=== PATIENT | female | born 1945 | race Caucasian/White ===

== ENCOUNTER 2016-04-10 16:23 | Outpatient (CLI) | payer MEDICARE | END 2016-04-10 16:24 | disposition home or self-care (01) | DX: R91.8 Other nonspecific abnormal finding of lung field (principal) ==

== ENCOUNTER 2016-08-13 09:33 | Emergency (ER) | payer MEDICARE ==
[2016-08-13 09:40] VITALS: BP 142/87
[2016-08-13] MEDS ORDERED: predniSONE 20 MG TABLET PO STA (09:52)
[2016-08-13] MEDS ORDERED: LORATADINE 10 MG TABLET PO STA (09:52)
[2016-08-13] MEDS ORDERED: traMADol 50 MG TABLET PO STA (09:53)
[2016-08-13] MEDS ORDERED: DOXYCYCLINE 100 MG TABLET PO STA (09:53)
--- NOTE | 2016-08-13 09:58 | ED Physician Documentation ---
History of Present Illness - Stated complaint Stated Complaint: R LEG SWOLLEN - Chief complaint Chief Complaint: Ext Problem - Additonal information Additional information: Patient is 8-year-old female who presents with the complaint of right medial knee pain. The patient felt an acute pain on Sunday while working the garden. She was wearing jeans. From that time to the present the areas become more swollen, tender, and painful. She has no other complaints such as fever chills nausea vomiting, constipation diarrhea or lower urinary symptoms. She has now noticed a few blisters in the area. Review of systems: For pertinent positive and negative questions for the review of systems please see history of present illness. Otherwise all other systems have been reviewed and are negative. Dragon disclaimer: Parts of this medical record were created using voice recognition technology. Because of the inherent limitations of this system occasional same sounding word substitutions do occur and persist despite proofreading. Please read the document for context. 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 Cardiovascular: Coronary stent HEENT: Tonsil/Adenoidectomy - Present Medications Home Medications: Ambulatory Orders Medication Instructions Recorded Confirmed Atorvastatin Calcium [Lipitor] 20 mg PO DAILY 07/03/12 08/13/16 FLUoxetine [PROzac] 20 mg PO DAILY 07/03/12 08/13/16 Multivitamin [Multivitamins] 1 each PO DAILY 07/03/12 08/13/16 Aspirin [Adult Low Dose Aspirin EC] 81 mg PO DAILY 08/13/16 08/13/16 Clopidogrel [Plavix] 75 mg PO DAILY 08/13/16 08/13/16 Doxycycline Hyclate [Vibramycin] 100 mg PO BID #14 capsule 08/13/16 Lisinopril 2.5 mg PO DAILY 08/13/16 08/13/16 Loratadine [Claritin] 10 mg PO DAILY #7 tablet 08/13/16 Metoprolol Tartrate 12.5 mg PO DAILY 08/13/16 08/13/16 Prednisone 40 mg PO DAILY #8 tablet 08/13/16 - Allergies Allergies/Adverse Reactions: Allergies Allergy/AdvReac Type Severity Reaction Status Date / Time bupropion HCl * Allergy Severe Hives and Verified 07/03/12 15:28 [From Wellbutrin] throat swelling Penicillins Allergy Severe hives and Verified 07/03/12 15:28 throat swelling - Social History Does the pt smoke?: Yes Smoking Status: Current every day smoker Does the pt drink ETOH?: Yes Does the pt have substance abuse?: No - Immunizations Immunizations are current?: Yes - POLST Patient has POLST: No PD ED PE NORMAL - General General: Alert and oriented X 3, No acute distress - HEENT HEENT: Atraumatic, PERRL - Cardiac Cardiac: RRR, No murmur - Respiratory Respiratory: No respiratory distress, Clear bilaterally - Abdomen Abdomen: Normal bowel sounds, Soft (On examination of the skin proximal and medial to the right knee there is an area that is approximately 6 x 8" that is mildly erythematous. There are a few discrete bulla in this area that are Containing a clear yellow fluid.) - Free text exam Free text exam: 6 x 8 cm patch right medial knee with a mild erythematous base and few clear bullae Results - Vitals Vitals: Vital Signs - 24 hr 08/13/16 09:36 Temperature 35.5 C L Heart Rate 72 Respiratory 18 Rate Blood Pressure 142/87 H O2 Saturation 99 Oxygen O2 Source Room air PD MEDICAL DECISION MAKING - ED course ED course: Patient presents with a swollen painful red area in the right middle knee with a few Clear bullae that are tense. It is in a location that is to well localized to represent shingles. I doubt infection although I might treat her for possible secondarily infected bite or sting. I think the mainstay of the treatment is going to be Oral steroids and antihistamines. Disposition: To home Clinical impression suspect insect bite or sting with local allergic reaction Departure - Departure Disposition: 01 Home, Self Care Clinical Impression: Insect bite Qualifiers: Encounter type: initial encounter Qualified Code(s): W57.XXXA - Bitten or stung by nonvenomous insect and other nonvenomous arthropods, initial encounter Condition: Good Instructions: Bites Stings Insect Follow-Up: Migdalia Kiran PA-C [Primary Care Provider] - Prescriptions: Loratadine [Claritin] 10 mg PO DAILY #7 tablet Prednisone 40 mg PO DAILY #8 tablet Doxycycline Hyclate [Vibramycin] 100 mg PO BID #14 capsule
[2016-08-13] MEDS ORDERED: traMADol 50 MG TABLET PO ONE (10:03)
[2016-08-13] MEDS ORDERED: DOXYCYCLINE 100 MG TABLET PO ONE (10:03)
[2016-08-13] MEDS ORDERED: LORATADINE 10 MG TABLET ONE (10:04)
[2016-08-13] MEDS ORDERED: predniSONE 20 MG TABLET ONE (10:04)
--- NOTE | 2016-08-16 12:45 | ED Physician Documentation ---
ED Addendum - Addendum Addendum: 08/16/16 12:44 Please change the Age listed in the documentation from 8 to age [age] years old
== END 2016-08-13 10:51 | disposition home or self-care (01) ==
LOC: ED 09:33
DX: S80.261A Insect bite (nonvenomous), right knee, initial encounter (principal); W57.XXXA Bitten or stung by nonvenomous insect and other nonvenomous arthropods, initial encounter; Y93.H2 Activity, gardening and landscaping; I25.2 Old myocardial infarction; F17.200 Nicotine dependence, unspecified, uncomplicated; Z95.5 Presence of coronary angioplasty implant and graft; Z79.82 Long term (current) use of aspirin
CPT/HCPCS: 99283; A9270; J7512

== ENCOUNTER 2016-11-28 08:21 | Outpatient (CLI) | payer MEDICARE ==
[2016-11-28 11:55] LABS: BASOPHILS # (AUTO) 0.1 10^3/uL (0.0-0.1); BASOPHILS % (AUTO) 0.7 %; EOSINOPHILS # (AUTO) 0.1 10^3/uL (0.0-0.7); EOSINOPHILS % (AUTO) 1.2 %; HCT - HEMATOCRIT 42.6 % (37.0-47.0); HGB - HEMOGLOBIN 14.3 g/dL (12.0-16.0); LYMPHOCYTES # (AUTO) 2.7 10^3/uL (1.5-3.5); LYMPHOCYTES % (AUTO) 34.3 %; MEAN CORPUSCULAR HEMOGLOBIN 32.1 pg (27.0-31.0); MEAN CORPUSCULAR HGB CONC 33.7 g/dL (32.0-36.0); MEAN CORPUSCULAR VOLUME 95.4 fL (81.0-99.0); MEAN PLATELET VOLUME 9.5 fL (7.9-10.8); MONOCYTES # (AUTO) 0.7 10^3/uL (0.0-1.0); MONOCYTES % (AUTO) 8.6 %; NEUTROPHILS # (AUTO) 4.4 10^3/uL (1.5-6.6); NEUTROPHILS % (AUTO) 55.2 %; NUCLEATED RED BLOOD CELLS AUTO 0.1 /100WBC; RED BLOOD COUNT 4.46 10^6/uL (4.20-5.40); RED CELL DISTRIBUTION WIDTH 12.7 % (12.0-15.0); UNCORRECTED WHITE BLOOD COUNT 7.9 x10^3/uL; WHITE BLOOD COUNT 7.9 x10^3/uL (4.8-10.8)
[2016-11-28 12:13] LABS: ALBUMIN/GLOBULIN RATIO 1.4 (1.0-2.2); BILIRUBIN,TOTAL 0.8 mg/dL (0.2-1.0); BUN - BLOOD UREA NITROGEN 15 mg/dL (6-20); CALCIUM 9.3 mg/dL (8.5-10.3); CARBON DIOXIDE - CO2 29 mmol/L (21-32); CHLORIDE 100 mmol/L (101-111); CHOL/HDL RATIO 4.5 (<4.4); CHOLESTEROL 161 mg/dL; CREATININE 0.8 mg/dL (0.4-1.0); GFR - MDRD 71 (>89); GLUCOSE 109 mg/dL (70-100); HDL CHOLESTEROL 36 mg/dL; LDL/HDL RATIO 2.6 (<4.4); POTASSIUM 4.3 mmol/L (3.5-5.0); SODIUM 138 mmol/L (135-145); TRIGLYCERIDES 148 mg/dL; VLDL CHOLESTEROL 30 mg/dL
[2016-11-28 12:28] LABS: THYROID STIMULATING HORMONE 3.15 uIU/mL (0.34-5.60)
== END 2016-11-28 08:22 | disposition home or self-care (01) ==
LOC: LAB.F 08:21
PROVIDERS: ATTEND Physician Assistant Medical
DX: Z79.899 Other long term (current) drug therapy (principal); Z91.89 Other specified personal risk factors, not elsewhere classified; R73.9 Hyperglycemia, unspecified; F32.9 Major depressive disorder, single episode, unspecified; E78.2 Mixed hyperlipidemia
CPT/HCPCS: 36415; 80053; 80061; 82607; 84443; 85025

== ENCOUNTER 2017-01-23 08:25 | Outpatient (CLI) | payer MEDICARE ==
--- NOTE | 2017-01-24 09:10 | MRI Report ---
EXAM: MRI LUMBAR SPINE WITHOUT CONTRAST EXAM DATE: 01/23/2017 09:02 AM. CLINICAL HISTORY: Back pain, lumbar with radiculopathy. COMPARISON: None. TECHNIQUE: Multiplanar, multisequence T1-weighted and fluid-sensitive sequences of the lumbar spine f rom T12 to S1 without contrast. Other: None. FINDINGS: Spinal Cord: The conus terminates at L1-L2. The conus medullaris and cauda equina are unremarkable. Alignment: There is flattening of the lumbar lordosis with a slight flexion deformity at L2-L3. Bone Marrow: Five [id number] lumbar vertebral bodies are assumed. No gross fractures or bone les ions. No bone marrow edema. Disk Levels/Facets: T12-L1: Unremarkable. L1-L2: Unremarkable. L2-L3: There is a broad-based posterior disk bulge causing mild canal narrowing. There is mild bilate ral foraminal narrowing. L3-L4: Unremarkable. L4-L5: Broad-based posterior disk bulge with moderate bilateral facet joint osteoarthritis and ligame ntum flavum redundancy causing mild canal narrowing. Mild left and moderate right foraminal narrowing . L5-S1: There is a broad-based posterior disk bulge with moderate right and mild left foraminal narrow ing. There is mild canal narrowing. There is mild right and minimal left foraminal narrowing. Musculature: Normal. No edema or fatty atrophy. Other: The partially visualized retroperitoneum is unremarkable. IMPRESSION: 1. Moderate degenerative change of the lumbar spine. 2. Mild canal narrowing at L2-L3, L4-L5 and L5-S1. 3. Moderate right and mild left foraminal narrowing at L4-L5. 4. Mild right and minimal left foraminal narrowing at L5-S1. Comment: The following findings are so common in adults without low back pain that while we report th eir presence, they must be interpreted with caution and in the context of the clinical situation. (Re marie Marie et al, Spine 2001) Prevalence of findings in patients without low back pain: Disk degeneration (any evidence): 92% Disk desiccation/T2 signal loss: 83% Disk height loss: 56% Disk bulge: 64% Disk protrusion: 32% Annular tear/high intensity zone: 38% [facility] Referring Provider Line: [phone] SITE ID: [id number]
== END 2017-01-23 08:26 | disposition home or self-care (01) ==
LOC: DI 08:25
PROVIDERS: ATTEND Physician Assistant Medical
DX: M54.16 Radiculopathy, lumbar region (principal); M48.061 Spinal stenosis, lumbar region without neurogenic claudication
CPT/HCPCS: 72148

== ENCOUNTER 2017-04-03 10:47 | Emergency (ER) | payer MEDICARE ==
[2017-04-03] MEDS ORDERED: SODIUM CHLORIDE 0.9% 1,000 ML IV ONE (12:01)
--- NOTE | 2017-04-03 12:03 | ED Physician Documentation ---
History of Present Illness - Stated complaint Stated Complaint: DIZZY,WEAK,HEAD PX - Chief complaint Chief Complaint: Neuro - History obtained from History obtained from: Patient, Family - History of Present Illness Timing: How many weeks ago (8) - Additonal information Additional information: 71-year-old female is began to have some episodes of dizziness and weakness about 2 months ago. This is become precipitously worse over the past 4-5 days. She is having episodes of dizziness when she stands up too fast with lightheadedness and sometimes when she is just standing she will develop dizziness.She denies any nausea vomiting diarrhea or changing her medications with the exception of reducing her venlafaxine over the past month. She states that the dizziness episodes preceded her taper of her medication. She reports that she has been trying to stop smoking for years and has worn a nicotine patch she is down to about 4 cigarettes per day. She does not use any diuretic and she believes that she is drinking an adequate amount of fluid daily. She has been waking up at night with sweats. Review of Systems Constitutional: reports: Sweats. denies: Fever Eyes: denies: Decreased vision Ears: reports: Ear pain Nose: denies: Rhinorrhea / runny nose, Congestion Throat: denies: Sore throat Cardiac: denies: Chest pain / pressure, Palpitations Respiratory: reports: Dyspnea. denies: Cough GI: denies: Abdominal Pain, Nausea, Vomiting, Constipation, Diarrhea : denies: Dysuria, Frequency Skin: denies: Rash Musculoskeletal: denies: Neck pain, Back pain, Extremity pain Neurologic: reports: Generalized weakness, Headache. 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 Cardiovascular: Coronary stent HEENT: Tonsil/Adenoidectomy - Present Medications Home Medications: Ambulatory Orders Medication Instructions Recorded Confirmed Atorvastatin Calcium [Lipitor] 20 mg PO DAILY 07/03/12 04/03/17 Multivitamin [Multivitamins] 1 each PO DAILY 07/03/12 04/03/17 Aspirin [Adult Low Dose Aspirin EC] 81 mg PO DAILY 08/13/16 04/03/17 Lisinopril 2.5 mg PO DAILY 08/13/16 04/03/17 Metoprolol Tartrate 12.5 mg PO DAILY 08/13/16 04/03/17 Mark Cit/Mag/D3/Zn/Management Nurse Rn/Joseph/Bor 400 mg PO DAILY 04/03/17 04/03/17 [Citracal-Vit D + Magnesium Tab] Nitroglycerin [Nitrostat] 0.4 mg SL PRN PRN 04/03/17 04/03/17 [place]-3/Dha/Epa/Fish Oil [Fish Oil 1,000 mg PO DAILY 04/03/17 04/03/17 1,000 mg Softgel] Ubidecarenone [Co Q-10] 200 mg PO DAILY 04/03/17 04/03/17 - Allergies Allergies/Adverse Reactions: Allergies Allergy/AdvReac Type Severity Reaction Status Date / Time bupropion HCl * Allergy Severe Hives and Verified 04/03/17 10:56 [From Wellbutrin] throat swelling Penicillins Allergy Severe hives and Verified 04/03/17 10:56 throat swelling - Social History Does the pt smoke?: Yes Smoking Status: Current every day smoker Does the pt drink ETOH?: Yes Does the pt have substance abuse?: No - Immunizations Immunizations are current?: Yes - POLST Patient has POLST: No PD ED PE NORMAL - Vitals Vital signs reviewed: Yes (tachy and hypertensive) - General General: Alert and oriented X 3, No acute distress, Well developed/nourished - HEENT HEENT: Atraumatic, PERRL, EOMI, Ears normal, Other (dry mucous membranes) - Neck Neck: Supple, no meningeal sign, No bony TTP - Cardiac Cardiac: No murmur, Other (tachy to 110) - Respiratory Respiratory: No respiratory distress, Clear bilaterally - Abdomen Abdomen: Soft, Non tender - Back Back: No CVA TTP, No spinal TTP - Derm Derm: Normal color, Warm and dry, No rash - Extremities Extremities: No deformity, No edema - Neuro Neuro: Alert and oriented X 3, predatory game hunter 2-12 intact, No motor deficit, No sensory deficit, Normal speech Eye Opening: Spontaneous Motor: Obeys Commands Verbal: Oriented GCS Score: 15 - Psych Psych: Normal mood, Normal affect Results - Vitals Vitals: Vital Signs - 24 hr 04/03/17 04/03/17 04/03/17 10:55 10:56 13:15 Temperature 36.8 C 36.5 C Heart Rate 112 H 106 H 64 Respiratory 18 18 14 Rate Blood Pressure 184/98 H 184/98 H 145/67 H O2 Saturation 97 98 100 04/03/17 14:59 Temperature Heart Rate 60 Respiratory 18 Rate Blood Pressure 133/63 H O2 Saturation 99 Oxygen O2 Source Room air - EKG (time done) 1057 Rate: Rate (enter#) (109) Rhythm: Sinus tachycardia, LAE Ischemia: Q waves (consistent with prior anterior and inferior. ) Compare to prior EKG: Changed from prior EKG (08-15-2012 rate has increased ) Computer interpretation: Agree with computer - Labs Labs: Laboratory Tests 04/03/17 04/03/17 04/03/17 12:10 12:10 12:10 WBC 14.0 H RBC 4.47 Hgb 14.6 Hct 42.5 MCV 95.0 MCH 32.6 H MCHC 34.3 RDW 12.8 Plt Count 266 MPV 9.3 Neut # 10.3 H Lymph # 2.3 [place] # 1.2 H Eos # 0.0 Baso # 0.1 Absolute Nucleated RBC 0.00 Nucleated RBC % 0.0 Sodium 134 L Potassium 4.0 Chloride 98 L Carbon Dioxide 25 Anion Gap 11.0 BUN 14 Creatinine 0.7 Estimated GFR (MDRD) 83 L Glucose 126 H Calcium 9.5 Total Bilirubin 0.5 AST 36 ALT 34 Alkaline Phosphatase 46 Troponin I < 0.04 Total Protein 7.4 Albumin 4.2 Globulin 3.2 Albumin/Globulin Ratio 1.3 Lipase 13 L TSH Urine Color Urine Clarity Urine pH Ur Specific [place] Urine Protein Urine Glucose (UA) Urine Ketones Urine Occult Blood Urine Nitrite Urine Bilirubin Urine Urobilinogen Ur Leukocyte Esterase Urine RBC Urine WBC Ur Squamous Epith Cells Amorphous Sediment Urine Bacteria Ur Microscopic Review Urine Culture Comments 04/03/17 04/03/17 12:10 12:15 WBC RBC Hgb Hct MCV MCH MCHC RDW Plt Count MPV Neut # Lymph # [place] # Eos # Baso # Absolute Nucleated RBC Nucleated RBC % Sodium Potassium Chloride Carbon Dioxide Anion Gap BUN Creatinine Estimated GFR (MDRD) Glucose Calcium Total Bilirubin AST ALT Alkaline Phosphatase Troponin I Total Protein Albumin Globulin Albumin/Globulin Ratio Lipase TSH 2.38 Urine Color YELLOW Urine Clarity CLOUDY Urine pH 7.0 Ur Specific [place] 1.020 Urine Protein TRACE Urine Glucose (UA) NEGATIVE Urine Ketones NEGATIVE Urine Occult Blood NEGATIVE Urine Nitrite NEGATIVE Urine Bilirubin NEGATIVE Urine Urobilinogen 0.2 (NORMAL) Ur Leukocyte Esterase NEGATIVE Urine RBC 0-5 Urine WBC 0-3 Ur Squamous Epith Cells FEW Squamous Amorphous Sediment Moderate Urine Bacteria Few Ur Microscopic Review INDICATED Urine Culture Comments NOT INDICATED Procedures - IVC sono (time) 1158 Bedside IVC sono: IVC measures (cm) (0.60), IVC collapsed c insp (cm) (complete) , Significant dehydration (est 3 liter deficit) 1440 Bedside IVC sono: IVC measures (cm) (1.26), Dehydration (marked improvement) PD MEDICAL DECISION MAKING - ED course Complexity details: reviewed old records, reviewed results, re-evaluated patient , considered differential, d/w patient, d/w family ED course: 71-year-old female with a chief complaint of dizziness which is worse after reducing her dose of venlafaxine. On interrogation the inferior vena cava she was found to be profoundly dehydrated and I search for explanation of this. I did not find evidence of diabetes I did not find low blood counts I do not find electrolyte abnormalities. She had a normal urine specific gravity. On further questioning it is apparent the patient overdoes caffeine on a regular basis. She has 2 cups of coffee in the morning and following that she has T throughout the rest of the day and she drinks a fair amount of tea. She is likely consuming as much as a gram of caffeine per day and this would act as a diuretic. Here in the emergency department she is administered saline intravenously and her inferior vena cava is remeasured and is much closer to normal at the time of discharge. She still has symptoms that are not part of a normal symptom complex including the burning in her ears in the back of her scalp and I suspect these are symptoms of the reduction and the venlafaxine dose and I expect these to adjust over a period of time. She will discuss this further with Migdalia kiran tomorrow at her appointment. Departure - Departure Disposition: 01 Home, Self Care Clinical Impression: Dehydration, Selective serotonin reuptake inhibitor (SSRI) discontinuation syndrome Condition: Stable Instructions: SSRIs, ED Dehydration Follow-Up: Migdalia Kiran PA-C [Primary Care Provider] - Comments: Today it appears that your primary symptom of dizziness is related to dehydration and I suspect the dehydration is related to the diuretic effect of the excessive caffeine you are taking in. The other symptoms that you have us appear to enhance the symptoms you are having from the dehydration. There are also other symptoms that are all likely related to your reduction in the venlafaxine. This should improve over a period of time follow-up with your primary care doctor.I recommend that you reduce your caffeine intake slowly and use no more than 400 mg per day. This is equivalent of 2 cups of coffee and a cup of tea. Discharge Date/Time: 04/03/17 15:06
[2017-04-03 12:34] LABS: BILIRUBIN,URINE NEGATIVE (NEGATIVE); GLUCOSE, URINE (UA) NEGATIVE (NEGATIVE); KETONES,URINE (UA) NEGATIVE (NEGATIVE); LEUKOCYTE ESTERASE, URINE NEGATIVE (NEGATIVE); NITRITE,URINE NEGATIVE (NEGATIVE); OCCULT BLOOD,URINE NEGATIVE (NEGATIVE); PROTEIN,URINE TRACE mg/dL (NEGATIVE); UROBILINOGEN,URINE 0.2 (NORMAL) E.U./dL (NORMAL)
[2017-04-03 12:38] LABS: BASOPHILS # (AUTO) 0.1 10^3/uL (0.0-0.1); BASOPHILS % (AUTO) 0.6 %; EOSINOPHILS % (AUTO) 0.1 %; HGB - HEMOGLOBIN 14.6 g/dL (12.0-16.0); LYMPHOCYTES # (AUTO) 2.3 10^3/uL (1.5-3.5); LYMPHOCYTES % (AUTO) 16.6 %; MEAN CORPUSCULAR HEMOGLOBIN 32.6 pg (27.0-31.0); MEAN CORPUSCULAR HGB CONC 34.3 g/dL (32.0-36.0); MEAN PLATELET VOLUME 9.3 fL (7.9-10.8); MONOCYTES # (AUTO) 1.2 10^3/uL (0.0-1.0); MONOCYTES % (AUTO) 8.8 %; NEUTROPHILS # (AUTO) 10.3 10^3/uL (1.5-6.6); NEUTROPHILS % (AUTO) 73.9 %; PLT - PLATELET COUNT 266 10^3/uL (130-450); RED BLOOD COUNT 4.47 10^6/uL (4.20-5.40); RED CELL DISTRIBUTION WIDTH 12.8 % (12.0-15.0)
[2017-04-03 12:39] LABS: CLARITY,URINE CLOUDY (CLEAR)
[2017-04-03 12:43] LABS: RBC,URINE 0-5 /HPF (0-5)
[2017-04-03 12:44] LABS: AMORPHOUS SEDIMENT,UR Moderate /LPF; BACTERIA,URINE Few /HPF (None Seen); SQUAMOUS EPITHELIAL CELL,UR FEW Squamous (<= Few)
[2017-04-03 12:47] LABS: ALBUMIN 4.2 g/dL (3.2-5.5); ALBUMIN/GLOBULIN RATIO 1.3 (1.0-2.2); BILIRUBIN,TOTAL 0.5 mg/dL (0.2-1.0); CALCIUM 9.5 mg/dL (8.5-10.3); CREATININE 0.7 mg/dL (0.4-1.0); TOTAL PROTEIN 7.4 g/dL (6.7-8.2)
--- NOTE | 2017-04-03 13:25 | XRAY Report ---
EXAM: CHEST RADIOGRAPHY EXAM DATE: 04/03/2017 12:40 PM. CLINICAL HISTORY: Weakness . COMPARISON: Chest x-ray 04/10/2016. TECHNIQUE: 2 views. FINDINGS: Lungs/Pleura: No focal opacities evident. No pleural effusion. No pneumothorax. Normal volumes. Mediastinum: Atherosclerotic aortic calcifications. Prominent cardiac silhouette may be due to pectus excavatum and/or cardiomegaly. Other: None. IMPRESSION: 1. No consolidation evident. [facility] Referring Provider Line: [phone] SITE ID: [id number]
[2017-04-03 15:00] VITALS: BP 133/63
== END 2017-04-03 15:06 | disposition home or self-care (01) ==
LOC: ED 10:47
DX: E86.0 Dehydration (principal); T43.225A Adverse effect of selective serotonin reuptake inhibitors, initial encounter; R00.0 Tachycardia, unspecified; I25.2 Old myocardial infarction; E78.00 Pure hypercholesterolemia, unspecified; Z79.82 Long term (current) use of aspirin; Z95.5 Presence of coronary angioplasty implant and graft; F17.200 Nicotine dependence, unspecified, uncomplicated
CPT/HCPCS: 36415; 71046; 80053; 81001; 81003; 83690; 84443; 84484; 85025; 87086; 93005; 96360; 99283; 99284

== ENCOUNTER 2017-08-13 13:34 | Outpatient (CLI) | payer MEDICARE ==
--- NOTE | 2017-08-13 14:29 | XRAY Report ---
Procedure Date: 08/13/2017 Accession Number: [id number] / [id number] Procedure: XR - Foot 2 View RT CPT Code: FULL RESULT: EXAM: Foot 2 View RT DATE: 08/13/2017 1:47 PM CLINICAL HISTORY: FOOT PAIN,RIGHT COMPARISON: None. TECHNIQUE: 2 views. FINDINGS: Bones: Small plantar and posterior calcaneal spurs. Joints: Mild osteoarthritis of interphalangeal joints. Soft Tissues: Normal. No soft tissue swelling. IMPRESSION: Mild degenerative changes. No evidence of fracture or foreign body. [facility]
== END 2017-08-13 13:35 | disposition home or self-care (01) ==
LOC: DI 13:34
PROVIDERS: ATTEND Physician Assistant Medical
DX: M19.071 Primary osteoarthritis, right ankle and foot (principal)

== ENCOUNTER 2017-12-04 07:54 | Outpatient (CLI) | payer MEDICARE ==
[2017-12-04 12:17] LABS: BASOPHILS % (AUTO) 0.6 %; EOSINOPHILS % (AUTO) 0.6 %; HGB - HEMOGLOBIN 12.7 g/dL (12.0-16.0); LYMPHOCYTES # (AUTO) 1.9 10^3/uL (1.5-3.5); LYMPHOCYTES % (AUTO) 24.2 %; MEAN CORPUSCULAR HEMOGLOBIN 33.6 pg (27.0-31.0); MEAN CORPUSCULAR HGB CONC 34.6 g/dL (32.0-36.0); MEAN CORPUSCULAR VOLUME 97.2 fL (81.0-99.0); MEAN PLATELET VOLUME 8.8 fL (7.9-10.8); MONOCYTES # (AUTO) 0.6 10^3/uL (0.0-1.0); MONOCYTES % (AUTO) 7.8 %; NEUTROPHILS # (AUTO) 5.4 10^3/uL (1.5-6.6); NEUTROPHILS % (AUTO) 66.8 %; PLT - PLATELET COUNT 372 10^3/uL (130-450); RED BLOOD COUNT 3.78 10^6/uL (4.20-5.40); RED CELL DISTRIBUTION WIDTH 13.6 % (12.0-15.0)
[2017-12-04 12:52] LABS: ALBUMIN 4.2 g/dL (3.2-5.5); ALBUMIN/GLOBULIN RATIO 1.3 (1.0-2.2); ALKALINE PHOSPHATASE 47 IU/L (42-121); ALT ALANINE AMINOTRANSFERASE 25 IU/L (10-60); AST ASPARTATE AMINOTRANSFERASE 20 IU/L (10-42); BILIRUBIN,TOTAL 0.8 mg/dL (0.2-1.0); BUN - BLOOD UREA NITROGEN 15 mg/dL (6-20); CALCIUM 9.2 mg/dL (8.5-10.3); CARBON DIOXIDE - CO2 29 mmol/L (21-32); CHLORIDE 100 mmol/L (101-111); CHOL/HDL RATIO 3.6 (<4.4); CHOLESTEROL 131 mg/dL; CREATININE 0.8 mg/dL (0.4-1.0); GFR - MDRD 71 (>89); GLUCOSE 107 mg/dL (70-100); HDL CHOLESTEROL 36 mg/dL; LDL CHOLESTEROL,CALCULATED 72 mg/dL; SODIUM 138 mmol/L (135-145); TOTAL PROTEIN 7.4 g/dL (6.7-8.2); VLDL CHOLESTEROL 23 mg/dL
[2017-12-04 12:56] LABS: HEMOGLOBIN A1C 0.51 g/dL; HEMOGLOBIN A1C % 5.7 % (4.6-6.2)
[2017-12-05 11:38] LABS: HEPATITIS C ANTIBODY NON-REACTIVE (NON-REACTIVE)
== END 2017-12-04 07:55 | disposition home or self-care (01) ==
LOC: LAB.F 07:54
PROVIDERS: ATTEND Physician Assistant Medical
DX: R73.9 Hyperglycemia, unspecified (principal); Z79.899 Other long term (current) drug therapy; I25.10 Atherosclerotic heart disease of native coronary artery without angina pectoris; F32.9 Major depressive disorder, single episode, unspecified; Z13.818 Encounter for screening for other digestive system disorders; Z72.89 Other problems related to lifestyle
CPT/HCPCS: 36415; 80053; 80061; 83036; 83721; 84443; 85025; 86803

== ENCOUNTER 2017-12-26 08:55 | Outpatient (CLI) | payer MEDICARE | END 2017-12-26 08:56 | disposition home or self-care (01) | LOC: NS 08:55 | PROVIDERS: ATTEND Physician Assistant Medical | DX: I25.10 Atherosclerotic heart disease of native coronary artery without angina pectoris (principal); E78.2 Mixed hyperlipidemia | CPT/HCPCS: 97802 ==

== ENCOUNTER 2018-01-03 08:19 | Outpatient (CLI) | payer MEDICARE ==
--- NOTE | 2018-01-04 09:51 | Mammography Report ---
Reason: SCREENING MAMMO Procedure Date: 01/03/2018 Accession Number: [id number] / [id number] Procedure: TEJA - Screening Mammo w/Sergio CPT Code: FULL RESULT: EXAM: Screening Mammo w/Sergio DATE: 01/03/2018 8:56 AM CLINICAL HISTORY: Screening encounter. TECHNIQUE: Bilateral CC, laterally exaggerated CC, MLO views were obtained. COMPARISON: 11/11/2015 through 05/30/2011. FINDINGS: The breasts demonstrate diffuse fatty replacement bilaterally. A typically benign coarse calcification is again seen in the right breast. No suspicious masses, clustered microcalcifications, or regions of architectural distortion are identified. IMPRESSION: Benign findings RECOMMENDATION: Routine annual screening unless otherwise clinically indicated. BIRADS CATEGORY 2: Benign findings STANDARD QUALIFYING STATEMENTS: 1. This examination was not reviewed with the aid of Computer-Aided Detection (CAD). 2. A negative or benign imaging report should not preclude biopsy if clinically suspicious findings are present. 3. Dense breasts may obscure an underlying neoplasm. 4. This examination was reviewed with the aid of 3D breast imaging (tomosynthesis).
== END 2018-01-03 08:20 | disposition home or self-care (01) ==
LOC: DI 08:19
PROVIDERS: ATTEND Physician Assistant Medical
DX: Z12.31 Encounter for screening mammogram for malignant neoplasm of breast (principal)
CPT/HCPCS: 77063; 77067

== ENCOUNTER 2018-01-03 08:34 | Outpatient (CLI) | payer MEDICARE ==
--- NOTE | 2018-01-04 10:25 | CT Report ---
Reason: PERSONAL HISTORY OF NICOTINE DEPENDENCE Procedure Date: 01/03/2018 Accession Number: [id number] / [id number] Procedure: CT - Chest/Lung Screen Low Dose W/O CPT Code: FULL RESULT: EXAM CT LUNG SCREEN EXAM DATE: 01/03/2018 08:56 AM. HISTORY: 72-year-old patient with [id number] smoking history. Currently smoking: No. Years since quitting: Less than 1. COMPARISON: None. TECHNIQUE: CT examination of the entire thorax without contrast was performed using low-dose technique. Thin section coronal, axial, sagittal and MIP axial images were obtained. In accordance with CT protocol optimization, one or more of the following dose reduction techniques were utilized for this exam: automated exposure control, adjustment of mA and/or KV based on patient size, or use of iterative reconstructive technique. FINDINGS: Nodules: Right upper lobe: 3 mm average diameter subpleural right upper lobe pulmonary nodule (4/29). Right middle lobe: None. Right lower lobe: 5 mm average diameter subpleural posterior right lower lobe pulmonary nodule (4/98). Left upper lobe: Subtle 3 mm nodule (4/56). Left lower lobe: None. Emphysema: None. Pleura: Unremarkable. Aorta: No aneurysm. Moderate atheromatous calcification of the arch. Mediastinum: Unremarkable. Coronary calcifications: None. Other pulmonary findings: Scarring seen at the inferior aspect of the lingula and pulmonary bases. Other extrapulmonary findings: Probable left-sided nephrolithiasis. IMPRESSION: Lung-RADS ASSESSMENT CATEGORY: 3 - probably benign Probability of malignancy: 1-2% RECOMMENDATION: Recommend follow-up screening with repeat low-dose chest CT in 6 months per lung RADS guidelines. [facility]
== END 2018-01-03 08:35 | disposition home or self-care (01) ==
LOC: DI 08:34
PROVIDERS: ATTEND Physician Assistant Medical
DX: Z12.2 Encounter for screening for malignant neoplasm of respiratory organs (principal); Z87.891 Personal history of nicotine dependence

== ENCOUNTER 2018-02-12 12:52 | Outpatient (CLI) | payer MEDICARE | END 2018-02-12 12:53 | disposition home or self-care (01) | LOC: NS 12:52 | PROVIDERS: ATTEND Physician Assistant Medical | DX: Z71.3 Dietary counseling and surveillance (principal); I25.10 Atherosclerotic heart disease of native coronary artery without angina pectoris; E78.2 Mixed hyperlipidemia | CPT/HCPCS: 97803 ==

== ENCOUNTER 2018-03-26 07:41 | Outpatient (CLI) | payer MEDICARE ==
[2018-03-26 11:13] LABS: BASOPHILS % (AUTO) 0.5 %; EOSINOPHILS # (AUTO) 0.1 10^3/uL (0.0-0.7); EOSINOPHILS % (AUTO) 1.3 %; HGB - HEMOGLOBIN 14.1 g/dL (12.0-16.0); LYMPHOCYTES # (AUTO) 2.9 10^3/uL (1.5-3.5); LYMPHOCYTES % (AUTO) 34.3 %; MEAN CORPUSCULAR HEMOGLOBIN 31.9 pg (27.0-31.0); MEAN CORPUSCULAR VOLUME 96.7 fL (81.0-99.0); MEAN PLATELET VOLUME 9.4 fL (7.9-10.8); MONOCYTES # (AUTO) 0.8 10^3/uL (0.0-1.0); MONOCYTES % (AUTO) 8.9 %; NEUTROPHILS # (AUTO) 4.7 10^3/uL (1.5-6.6); PLT - PLATELET COUNT 269 10^3/uL (130-450); RED BLOOD COUNT 4.43 10^6/uL (4.20-5.40); RED CELL DISTRIBUTION WIDTH 13.1 % (12.0-15.0); WHITE BLOOD COUNT 8.5 x10^3/uL (4.8-10.8)
== END 2018-03-26 07:42 | disposition home or self-care (01) ==
LOC: LAB.F 07:41
PROVIDERS: ATTEND Physician Assistant Medical
DX: R79.9 Abnormal finding of blood chemistry, unspecified (principal)
CPT/HCPCS: 36415; 85025

== ENCOUNTER 2018-07-10 11:35 | Emergency (ER) | payer MEDICARE ==
[2018-07-10 11:42] VITALS: BP 137/49
[2018-07-10] MEDS ORDERED: traMADol 50 MG TABLET PO STA (12:03)
--- NOTE | 2018-07-10 12:20 | ED Physician Documentation ---
PD HPI LOWER EXT INJURY - Stated complaint Stated Complaint: FALL - Chief complaint Chief Complaint: Trauma Ext - History obtained from History obtained from: Patient, Family - History of Present Illness PD HPI LOW EXT INJURY LOCATION: Left, Knee Type of injury: Fall, Blunt / blow, Other (fell directly on L kneecap) Where injury occurred: Home Timing - onset: How many hours ago (2) Timing - duration: Hours Timing - details: Abrupt onset Improved by: Rest, Nothing Worsened by: Palpating Associated symptoms: No: Weakness, Numbness, Tingling Contributing factors: Anticoagulated (on plavix). No: Prior ortho surgery Similar symptoms before: Has not had sx before - Treatment prior to arrival Treatment prior to arrival: none - Additional information Additional information: Patient tripped on a cord at home and fell forward landing on her L knee. Can walk and bend the knee but has pain over the patella Review of Systems Ten Systems: 10 systems reviewed and negative Constitutional: denies: Fever Cardiac: denies: Chest pain / pressure Respiratory: denies: Dyspnea GI: denies: Abdominal Pain Skin: reports: Reviewed and negative Musculoskeletal: reports: Joint pain, Joint swelling. denies: Neck pain, Back pain Neurologic: denies: Focal weakness, Numbness, Head injury Endocrine: reports: Easy bruising / bleeding PD PAST MEDICAL HISTORY - Past Medical History Past Medical History: Yes Cardiovascular: High cholesterol, [place] Endocrine/Autoimmune: None GI: None, Colon polyps HEENT: Chronic vision loss, Macular degeneration Psych: Depression Musculoskeletal: Osteoarthritis Derm: None - Past Surgical History Past Surgical History: Yes General: Colonoscopy /MOLDER LABELS: Hysterectomy Cardiovascular: Coronary stent HEENT: Tonsil/Adenoidectomy - Present Medications Home Medications: Ambulatory Orders Medication Instructions Recorded Confirmed Atorvastatin Calcium [Lipitor] 20 mg PO DAILY 07/03/12 04/03/17 Multivitamin [Multivitamins] 1 each PO DAILY 07/03/12 04/03/17 Aspirin [Adult Low Dose Aspirin EC] 81 mg PO DAILY 08/13/16 04/03/17 Lisinopril 2.5 mg PO DAILY 08/13/16 04/03/17 Metoprolol Tartrate 12.5 mg PO DAILY 08/13/16 04/03/17 Mark Cit/Mag/D3/Zn/Sat Act Instructor/Joseph/Bor 400 mg PO DAILY 04/03/17 04/03/17 [Citracal-Vit D + Magnesium Tab] Nitroglycerin [Nitrostat] 0.4 mg SL PRN PRN 04/03/17 04/03/17 [place]-3/Dha/Epa/Fish Oil [Fish Oil 1,000 mg PO DAILY 04/03/17 04/03/17 1,000 mg Softgel] Ubidecarenone [Co Q-10] 200 mg PO DAILY 04/03/17 04/03/17 - Allergies Allergies/Adverse Reactions: Allergies Allergy/AdvReac Type Severity Reaction Status Date / Time bupropion HCl * Allergy Severe Hives and Verified 07/10/18 11:42 [From Wellbutrin] throat swelling Penicillins Allergy Severe hives and Verified 07/10/18 11:42 throat swelling - Social History Does the pt smoke?: Yes Smoking Status: Current every day smoker Does the pt drink ETOH?: Yes Does the pt have substance abuse?: No - Immunizations Immunizations are current?: Yes - POLST Patient has POLST: No PD ED PE NORMAL - Vitals Vital signs reviewed: Yes - General General: Alert and oriented X 3 - HEENT HEENT: Atraumatic, PERRL - Neck Neck: Supple, no meningeal sign - Cardiac Cardiac: RRR, No murmur, No gallop, No rub - Respiratory Respiratory: No respiratory distress - Abdomen Abdomen: Soft, Non tender, Non distended - Female Female : Deferred - Rectal Rectal: Deferred - Back Back: No CVA TTP - Derm Derm: Normal color, Warm and dry, No rash - Extremities Extremities: No deformity - Neuro Neuro: Alert and oriented X 3 Eye Opening: Spontaneous Motor: Obeys Commands Verbal: Oriented GCS Score: 15 - Psych Psych: Normal mood, Normal affect Results - Vitals Vitals: Vital Signs - 24 hr 07/10/18 11:40 Temperature 36.0 C L Heart Rate 77 Respiratory 14 Rate Blood Pressure 137/49 H O2 Saturation 97 Oxygen O2 Source Room air - Rads (name of study) No standard instances Radiology: EMP read indepedently (no acute fx or dislocation) PD MEDICAL DECISION MAKING - ED course Complexity details: considered differential, d/w patient, d/w family ED course: fracture, sprain, contusion, dislocation 72 y/o F with minor knee trauma - on plavix and fell on L knee, has a mild knee contusion. Negative xrays here. Likely will have bruising/possible hematoma since she is on plavix. Advised ice, tylenol as needed for pain. Pt can weight bear as tolerated. F/u with PCP if pain persists. Return to the ED if worsening symptoms. Departure - Departure Disposition: 01 Home, Self Care Clinical Impression: Contusion of left knee Condition: Stable Instructions: ED Contusion Lower Ext Follow-Up: Marcos Marinelli MD [Primary Care Provider] - As Needed Comments: You were seen in the ED today for a knee injury. There's no evidence of fracture or dislocation. This is a knee contusion. Use ice and take tylenol for pain. Follow up with your doctor if your pain is not improving.
--- NOTE | 2018-07-10 12:35 | XRAY Report ---
Reason: fall on L knee Procedure Date: 07/10/2018 Accession Number: [id number] / [id number] Procedure: XR - Knee 3 View LT CPT Code: FULL RESULT: EXAM: LEFT KNEE RADIOGRAPHY EXAM DATE: 07/10/2018 12:19 PM. CLINICAL HISTORY: Fall on left knee. COMPARISON: None. TECHNIQUE: 3 views. FINDINGS: Bones: Bones appear qualitatively osteopenic with no fracture identified. Joints: Small joint effusion. No subluxation. No significant joint space loss with only minimal marginal osteophytosis. Soft Tissues: Normal. No soft tissue swelling. IMPRESSION: No acute fracture or dislocation is identified. RADIA
== END 2018-07-10 12:44 | disposition home or self-care (01) ==
LOC: ED 11:35
DX: S80.02XA Contusion of left knee, initial encounter (principal); W01.0XXA Fall on same level from slipping, tripping and stumbling without subsequent striking against object, initial encounter; Y92.009 Unspecified place in unspecified non-institutional (private) residence as the place of occurrence of the external cause; F17.200 Nicotine dependence, unspecified, uncomplicated; Z79.01 Long term (current) use of anticoagulants
CPT/HCPCS: 73562; 99282; 99283; A9270

== ENCOUNTER 2021-06-27 10:48 | Emergency (ER) | payer MEDICARE ==
--- NOTE | 2021-06-27 11:41 | XRAY Report ---
PROCEDURE: Ribs w/PA Chest RT INDICATIONS: trauma TECHNIQUE: 2 views of the right ribs were acquired, along with a single view chest. COMPARISON: None. FINDINGS: Surgical changes and devices: None. Bones and chest wall: Moderately displaced right 10th rib fracture anteriorly. No suspicious bony le sions. Overlying soft tissues appear unremarkable. Lungs and pleura: No pleural effusions or pneumothorax. Lungs appear clear. Mediastinum: Mediastinal contours appear normal. Heart size is normal. IMPRESSION: Mildly displaced right 10th rib fracture. Reviewed by: Dewey Pastrana MD on 06/27/2021 11:40 AM PDT Approved by: Dewey Pastrana MD on 06/27/2021 11:40 AM PDT Station ID: [id number]
[2021-06-27] MEDS ORDERED: KETOROLAC 15 MG/ML VIAL IM STA (12:03)
[2021-06-27] MEDS ORDERED: CHERRY SYRUP 10 ML UDC PO ONE (12:04)
[2021-06-27] MEDS ORDERED: DEXAMETHASONE 10 MG/ML VIAL PO STA (12:04)
--- NOTE | 2021-06-27 12:08 | ED Physician Documentation ---
History of Present Illness - Stated complaint Stated Complaint: FALL/R SIDE PAIN - Chief complaint Chief Complaint: Trauma Ch/Bk - History obtained from History obtained from: Patient, Family - History of Present Illness Timing: How many days ago (5) - Additonal information Additional information: 75-year-old Maria Fernanda Kim has a history of Hypertension and depression and she indicates that 5 days ago she was putting a garbage disposal in under her sink when she wedged herself between the pillar of the doors to the cabinet under the sink and the floor of the cabinet and this initially hurt but not significant the following day she bumped the area again and this began to hurt worse. Today she is having difficulty sleeping and moving around. Review of Systems Constitutional: denies: Fever Ears: denies: Ear pain Nose: denies: Congestion Throat: denies: Sore throat Cardiac: reports: Chest pain / pressure. denies: Palpitations, Pedal edema, Calf pain Respiratory: denies: Dyspnea, Cough GI: denies: Vomiting PD PAST MEDICAL HISTORY - Past Medical History Past Medical History: Yes Cardiovascular: High cholesterol, [place] Endocrine/Autoimmune: None GI: None, Colon polyps HEENT: Chronic vision loss, Macular degeneration Psych: Depression Musculoskeletal: Osteoarthritis Derm: None - Past Surgical History Past Surgical History: Yes General: Colonoscopy /GLASS SCULLION: Hysterectomy Cardiovascular: Coronary stent HEENT: Tonsil/Adenoidectomy - Present Medications Home Medications: Ambulatory Orders Medication Instructions Recorded Confirmed Atorvastatin Calcium [Lipitor] 20 mg PO DAILY 07/03/12 04/03/17 Multivitamin [Multivitamins] 1 each PO DAILY 07/03/12 04/03/17 Aspirin [Adult Low Dose Aspirin EC] 81 mg PO DAILY 08/13/16 04/03/17 Metoprolol Tartrate 12.5 mg PO DAILY 08/13/16 04/03/17 lisinopriL [Lisinopril] 2.5 mg PO DAILY 08/13/16 04/03/17 Mark Cit/Mag/D3/Zn/Integrity Analyst/Joseph/Bor 400 mg PO DAILY 04/03/17 04/03/17 [Citracal-Vit D + Magnesium Tab] Nitroglycerin [Nitrostat] 0.4 mg SL PRN PRN 04/03/17 04/03/17 [place]-3/Dha/Epa/Fish Oil [Fish Oil 1,000 mg PO DAILY 04/03/17 04/03/17 1,000 mg Softgel] Ubidecarenone [Co Q-10] 200 mg PO DAILY 04/03/17 04/03/17 HYDROcod/ACETAM 5/325 [[place] 5/325] 1 - 2 tablet PO Q6H PRN #14 tablet 06/27/21 - Allergies Allergies/Adverse Reactions: Allergies Allergy/AdvReac Type Severity Reaction Status Date / Time bupropion HCl * Allergy Severe Hives and Verified 06/27/21 10:55 [From Wellbutrin] throat swelling Penicillins Allergy Severe hives and Verified 06/27/21 10:55 throat swelling - Social History Does the pt smoke?: Yes Smoking Status: Current every day smoker Does the pt drink ETOH?: Yes Does the pt have substance abuse?: No - Immunizations Immunizations are current?: Yes - POLST Patient has POLST: No PD ED PE NORMAL - Vitals Vital signs reviewed: Yes (hypertensive ) - General General: Alert and oriented X 3, No acute distress, Well developed/nourished - HEENT HEENT: Atraumatic, PERRL, EOMI - Neck Neck: Supple, no meningeal sign, No bony TTP - Cardiac Cardiac: RRR, No murmur - Respiratory Respiratory: No respiratory distress, Clear bilaterally, Other (There is tenderness to the chest wall laterally on the right side .) - Abdomen Abdomen: Soft, Non tender - Back Back: No CVA TTP, No spinal TTP - Derm Derm: Normal color, Warm and dry, No rash - Extremities Extremities: No deformity, No edema - Neuro Neuro: Alert and oriented X 3, picker/puller 2-12 intact, No motor deficit, No sensory deficit, Normal speech Eye Opening: Spontaneous Motor: Obeys Commands Verbal: Oriented GCS Score: 15 - Psych Psych: Normal mood, Normal affect Results - Vitals Vitals: Vital Signs - 24 hr 06/27/21 06/27/21 10:53 12:31 Temperature 36.2 C L Heart Rate 82 64 Respiratory 20 16 Rate Blood Pressure 161/65 H 126/49 L O2 Saturation 97 97 Oxygen O2 Source Room air - Rads (name of study) ribs with pa chest Radiology: Prelim report reviewed (Impression: Mildly displaced right 10th rib fracture.), EMP read indepedently, See rad report PD MEDICAL DECISION MAKING - ED course Complexity details: reviewed results, re-evaluated patient, considered differential, d/w patient, d/w family ED course: 75-year-old female with a right rib fracture single fracture 5 days out from the event without evidence of infiltrative or effusion. She is treated here in the ED with toradal and decadron with improvement. She appears to be doing well but is very uncomfortable unable to sleep at night. She initially refuses narcotic pain reliever. After discussion of the options she will except a limi naila prescription. Departure - Departure Disposition: 01 Home, Self Care Clinical Impression: Rib fracture Qualifiers: Encounter type: initial encounter Rib fracture type: single rib Fracture type: closed Laterality: right Qualified Code(s): S22.31XA - Fracture of one rib, right side, initial encounter for closed fracture Condition: Stable Instructions: ED Fx Rib Follow-Up: KERLINE BAILEY MD [Primary Care Provider] - Prescriptions: HYDROcod/ACETAM 5/325 [[place] 5/325] 1 - 2 tablet PO Q6H PRN #14 tablet PRN Reason: Pain Comments: Maria Fernanda, today it looks like you have a single rib fracture of the 10th rib on the right side. This will take about 6 weeks to heal and the important point is to do deep breathing several times per day. My recommendation is to take your pain medication and when you are more comfortable do your deep breathing. We have E scribed some [place] [facility] [place]. This medication can be constipating and my recommendation is to take some milk of magnesia if you do not have a bowel movement within 2 days. Additionally it can be habit-forming and we are only providing a limited number of pain pills. Discharge Date/Time: 06/27/21 12:33
[2021-06-27 12:33] VITALS: BP 126/49
== END 2021-06-27 12:33 | disposition home or self-care (01) ==
LOC: ED 10:48
DX: S22.31XA Fracture of one rib, right side, initial encounter for closed fracture (principal); W23.1XXA Caught, crushed, jammed, or pinched between stationary objects, initial encounter; Y93.89 Activity, other specified; Y92.89 Other specified places as the place of occurrence of the external cause; F17.200 Nicotine dependence, unspecified, uncomplicated; I10 Essential (primary) hypertension
CPT/HCPCS: 71101; 96372; 99283; A9270

== ENCOUNTER 2022-04-06 23:17 | Emergency (ER) | payer MEDICARE ==
[2022-04-07 00:02] LABS: BASOPHILS # (AUTO) 0.1 10^3/uL (0.0-0.1); BASOPHILS % (AUTO) 0.5 %; EOSINOPHILS # (AUTO) 0.2 10^3/uL (0.0-0.7); EOSINOPHILS % (AUTO) 1.3 %; HCT - HEMATOCRIT 40.4 % (37.0-47.0); HGB - HEMOGLOBIN 13.1 g/dL (12.0-16.0); LYMPHOCYTES # (AUTO) 2.2 10^3/uL (1.5-3.5); LYMPHOCYTES % (AUTO) 14.1 %; MEAN CORPUSCULAR HEMOGLOBIN 31.7 pg (27.0-31.0); MEAN CORPUSCULAR HGB CONC 32.4 g/dL (32.0-36.0); MEAN CORPUSCULAR VOLUME 97.8 fL (81.0-99.0); MEAN PLATELET VOLUME 10.4 fL (7.9-10.8); MONOCYTES # (AUTO) 1.3 10^3/uL (0.0-1.0); MONOCYTES % (AUTO) 8.6 %; NEUTROPHILS # (AUTO) 11.6 10^3/uL (1.5-6.6); NEUTROPHILS % (AUTO) 75.2 %; PLT - PLATELET COUNT 318 10^3/uL (130-450); RED BLOOD COUNT 4.13 10^6/uL (4.20-5.40); RED CELL DISTRIBUTION WIDTH 12.9 % (12.0-15.0); WHITE BLOOD COUNT 15.4 x10^3/uL (4.8-10.8)
[2022-04-07] MEDS ORDERED: SODIUM CHLORIDE 0.9% 1,000 ML IV STA (00:21)
--- NOTE | 2022-04-07 00:21 | ED Physician Documentation ---
PD HPI SYNCOPE - Stated complaint Stated Complaint: CHEST PX - Chief complaint Chief Complaint: Cardiac - History obtained from History obtained from: Patient, Family ( contributes to HPI) - History of Present Illness Witnessed: Unwitnessed Associated symptoms: Chest pain, Palpitations. No: Incontinant of urine, Incontinant of stool, Headache, Vision changes, Dyspnea, Nausea / vomiting, Abdominal pain Injury occurred: Fell. No: Head injury, Neck injury - Additional information Additional information: BIBA. Patient says she was lying in bed watching TV when she experienced sudden onset of rapid palpitations. She then got up to use bathroom, had near syncope with mild left anterior chest pressure, lightheadedness before falling to ground. She says she does not think she lost consciousness but had brief period (approximately 5-10 seconds) of feeling like she was too weak to move. Her was downstairs, heard patient fall to ground and immediately went to check on her, finding her on floor but awake, alert, responding and able to move. At the time of this HPI, patient's only c/o is left hip pain which happened due to fall, although she has been able to bear weight on LLE. Review of Systems Eyes: denies: Loss of vision, Decreased vision Cardiac: reports: Palpitations (resolved). denies: Chest pain / pressure Respiratory: reports: Reviewed and negative GI: reports: Reviewed and negative : denies: Incontinent Musculoskeletal: reports: Joint pain (left hip). denies: Neck pain, Back pain, Extremity pain, Pain with weight bearing Neurologic: reports: Generalized weakness (resolved), Near syncope. denies: Focal weakness, Numbness, Headache, Head injury, LOC PD PAST MEDICAL HISTORY - Past Medical History Cardiovascular: High cholesterol, [place] Endocrine/Autoimmune: None GI: None, Colon polyps HEENT: Chronic vision loss, Macular degeneration Psych: Depression Musculoskeletal: Osteoarthritis Derm: None - Past Surgical History Past Surgical History: Yes General: Colonoscopy /RE[employer]NSHIP: Hysterectomy Cardiovascular: Coronary stent HEENT: Tonsil/Adenoidectomy - Present Medications Home Medications: Ambulatory Orders Medication Instructions Recorded Confirmed Atorvastatin Calcium [Lipitor] 20 mg PO DAILY 07/03/12 04/03/17 Multivitamin [Multivitamins] 1 each PO DAILY 07/03/12 04/03/17 Aspirin [Adult Low Dose Aspirin EC] 81 mg PO DAILY 08/13/16 04/03/17 Metoprolol Tartrate 12.5 mg PO DAILY 08/13/16 04/03/17 lisinopriL [Lisinopril] 2.5 mg PO DAILY 08/13/16 04/03/17 Mark Cit/Mag/D3/Zn/House Director/Joseph/Bor 400 mg PO DAILY 04/03/17 04/03/17 [Citracal-Vit D + Magnesium Tab] Nitroglycerin [Nitrostat] 0.4 mg SL PRN PRN 04/03/17 04/03/17 [place]-3/Dha/Epa/Fish Oil [Fish Oil 1,000 mg PO DAILY 04/03/17 04/03/17 1,000 mg Softgel] Ubidecarenone [Co Q-10] 200 mg PO DAILY 04/03/17 04/03/17 HYDROcod/ACETAM 5/325 [[place] 5/325] 1 - 2 tablet PO Q6H PRN #14 tablet 06/27/21 - Allergies Allergies/Adverse Reactions: Allergies Allergy/AdvReac Type Severity Reaction Status Date / Time bupropion HCl * Allergy Severe Hives and Verified 06/27/21 10:55 [From Wellbutrin] throat swelling Penicillins Allergy Severe hives and Verified 06/27/21 10:55 throat swelling - Social History Does the pt smoke?: Yes Smoking Status: Current every day smoker Does the pt drink ETOH?: Yes Does the pt have substance abuse?: No - Immunizations Immunizations are current?: Yes - POLST Patient has POLST: No PD ED PE NORMAL - Vitals Vital signs reviewed: Yes - General General: Alert and oriented X 3, No acute distress, Well developed/nourished - HEENT HEENT: Moist mucous membranes - Neck Neck: Supple, no meningeal sign, C-Spine cleared by NEXUS criteria - Cardiac Cardiac: RRR - Respiratory Respiratory: No respiratory distress, Clear bilaterally - Abdomen Abdomen: Soft, Non tender - Derm Derm: Normal color, Warm and dry - Extremities Extremities: No deformity, No tenderness to palpate, Normal ROM s pain, No edema - Neuro Neuro: Alert and oriented X 3, glass blowing instructor 2-12 intact, No motor deficit, No sensory deficit, Normal speech Eye Opening: Spontaneous Motor: Obeys Commands Verbal: Oriented GCS Score: 15 PD ED PE EXPANDED - Cardiac Cardiac: Murmur Present (2/6 RAYMUNDO greatest at left second ICS) Results - Vitals Vitals: Oxygen O2 Source Room air - EKG (time done) No standard instances Rate: Rate (enter#) (83) Rhythm: NSR [place]: Normal Intervals: Normal [place] QRS: Normal Ischemia: Normal ST segments, Q waves (II, III, aVF) Other comments: Other comments (PACs) - Labs Labs: Laboratory Tests 04/06/22 04/06/22 04/06/22 23:56 23:56 23:56 WBC 15.4 H RBC 4.13 L Hgb 13.1 Hct 40.4 MCV 97.8 MCH 31.7 H MCHC 32.4 RDW 12.9 Plt Count 318 MPV 10.4 Neut # (Auto) 11.6 H Lymph # (Auto) 2.2 [place] # (Auto) 1.3 H Eos # (Auto) 0.2 Baso # (Auto) 0.1 Absolute Nucleated RBC 0.00 Nucleated RBC % 0.0 Sodium 137 Potassium 4.0 Chloride 103 Carbon Dioxide 24 Anion Gap 10.0 BUN 22 H Creatinine 1.0 Estimated GFR (MDRD) 54 L Glucose 128 H Calcium 8.8 Total Bilirubin 0.3 AST 16 ALT 18 Alkaline Phosphatase 53 Troponin I High Sens 162.0 H* Total Protein 6.4 L Albumin 3.5 Globulin 2.9 Albumin/Globulin Ratio 1.2 Lipase 27 04/07/22 02:34 WBC RBC Hgb Hct MCV MCH MCHC RDW Plt Count MPV Neut # (Auto) Lymph # (Auto) [place] # (Auto) Eos # (Auto) Baso # (Auto) Absolute Nucleated RBC Nucleated RBC % Sodium Potassium Chloride Carbon Dioxide Anion Gap BUN Creatinine Estimated GFR (MDRD) Glucose Calcium Total Bilirubin AST ALT Alkaline Phosphatase Troponin I High Sens 364.8 H* Total Protein Albumin Globulin Albumin/Globulin Ratio Lipase PD Medical Decision Making - ED course Complexity details: reviewed results, re-evaluated patient, considered differential, d/w patient ED course: Tests ordered and reviewed by me: CBC, ER abdominal panel, hs-cTn with 2-hour repeat, CXR, EKG. Initial hs-cTn is 162, with 2-hour repeat of 364. There are no acute findings on EKG (no ST segment elevations nor depressions). 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 Given near syncope and elevated hs-cTn with the above 2-hour increase from tova cohen, I contacted patient's cardiology group (her dial screw assembler is Dr. Khanna; I spoke with covering dial screw assembler Dr. Yañez). Dr. Yañez says it is safe and appropriate to d/c patient at this time since she is asymptomatic, has no EKG changes, and stable vital signs. The mildly elevated hs-cTn is thought to be due to transient low-flow state (rather than ACS as primary event causing low-flow state/hypotension). She recommends patient decrease her beta-jane (metoprolol) dose to 12.5mg PO QD (from 25mg) and lisinopril to 2.5 mg PO QD (from 5 mg), as patient has been exhibiting low-normal blood pressure readings throughout most of ED stay. I advised patient of these recommendations from Dr. Yañez. Results of barak's tests reviewed with patient and return precautions discussed. I advised her to contact her dial screw assembler in the morning to arrange for immediate follow up/reevaluation. Departure - Departure Disposition: 01 Home, Self Care Clinical Impression: Near syncope Hypotension Qualifiers: Hypotension type: unspecified hypotension type Qualified Code(s): I95.9 - Hypotension, unspecified Laceration of thumb Qualifiers: Encounter type: initial encounter Damage to nail status: without damage Foreign body presence: without foreign body Laterality: right Qualified Code(s): S61.011A - Laceration without foreign body of right thumb without damage to nail, initial encounter Condition: Good Instructions: ED Laceration Hand, ED Near Syncope Unkn Comments: At this time, the cause of the symptoms that led to your visit barak is unclear. From the information gathered, it sounds very much like the initial event was that your blood pressure dropped too low, and that this led to your near syncope (nearly passing out). Your EKG did not have any findings to suggest an acute coronary event (such as a heart attack). As we discussed, your cardiac enzyme blood test was mildly elevated into an abnormal range, and a repeat test 2 hours later of this same lab test showed that it had further increased. I discussed your case with the on-call dial screw assembler for your cardiology group; Dr. Ashley on he was the dial screw assembler on duty and the one I discussed your case with barak. Dr. Yañez feels that it is safe and appropriate to discharge you home from the emergency department after 6 hours of observation, provided your pulse and blood pressures have stabilized into a normal range, and that your symptoms have resolved and do not recur during this period of observation. Dr. Yañez suspects that the cardiac enzyme elevations are due to the low blood pressure rather than an acute coronary syndrome (heart attack) being the initial event that then caused low blood pressure. Dr. Yañez also recommends that you lower the doses of both the lisinopril and the metoprolol to the following dose: Lisinopril 2.5 mg by mouth once per day, metoprolol 12.5 mg once per day. As we discussed, it appears that you currently taking 5 mg of lisinopril and 25 mg of metoprolol, and thus you can just take half a tablet of each of these medications. The reason for this recommendation is because your blood pressures have been running low tonight, and, for the short-term, it would be preferable that your blood pressures run normal or even a little bit high, as to lower blood pressure can be an immediate danger as it was potentially tonight. I recommend that you contact your dial screw assembler later this morning when their office opens to arrange for immediate follow-up. Certainly, you should immediately return to the emergency department or call 911 should your symptoms recur. You should increase your fluid intake for the next 1 or 2 days. I recommend that you also contact your primary care provider later this morning to arrange for a follow-up appointment for the removal of the sutures. The stitches/sutures should be removed in 7 to 10 days from today. The thumb laceration was repaired with a running stitch with a total of 6 throws. I include this information for the benefit of your primary care provider so they know how many stitches are in place and need to be removed. The tissue adhesive ("glue") that was used to repair the laceration on your ring finger should fall off like a scab within the next 4 or 5 days. Discharge Date/Time: 04/07/22 06:22
[2022-04-07 00:22] LABS: ALBUMIN 3.5 g/dL (3.2-5.5); ALBUMIN/GLOBULIN RATIO 1.2 (1.0-2.2); BILIRUBIN,TOTAL 0.3 mg/dL (0.2-1.0); CALCIUM 8.8 mg/dL (8.5-10.3); TOTAL PROTEIN 6.4 g/dL (6.7-8.2)
--- NOTE | 2022-04-07 01:32 | XRAY Report ---
PROCEDURE: Chest 2 View X-Ray INDICATIONS: Chest pain TECHNIQUE: 2 views of the chest were acquired. COMPARISON: Chest x-ray 06/27/2021. FINDINGS: Surgical changes and devices: None. Lungs and pleura: There is hyperinflation of the lungs with flattening of the hemidiaphragms compati ble with COPD. No definite acute consolidation. Slightly increased indistinct opacities within the araceli ng bases are suggestive of atelectasis or scarring. No pleural effusions or pneumothorax. Mediastinum: Mediastinal contours are normal. Heart size is normal. Bones and chest wall: No suspicious bony abnormalities. Soft tissues appear unremarkable. IMPRESSION: 1. No definite acute cardiopulmonary disease. 2. Findings compatible with COPD redemonstrated. 3. Probable mild atelectasis or scarring in the lung bases. Reviewed by: Gideon Byrd MD on 04/07/2022 1:30 AM PST Approved by: Gideon Byrd MD on 04/07/2022 1:30 AM [facility] Station ID: [id number]
[2022-04-07] MEDS ORDERED: LIDOCAINE 1% 2 ML VIAL SUBQ STA (02:40)
[2022-04-07] MEDS ORDERED: TETANUS/DIPHTHERIA/PERTUSSIS 0.5 ML SYRINGE IM ONE (02:40)
[2022-04-07] MEDS ORDERED: BACITRACIN ZINC OINT 1 PACKET TOP ONE (05:51)
[2022-04-07] MEDS ORDERED: BACITRACIN ZINC OINT 1 PACKET TOP STA (06:03)
[2022-04-07 06:14] VITALS: BP 113/52
== END 2022-04-07 06:22 | disposition home or self-care (01) ==
LOC: EDUNIT# → ED 23:17
DX: R55 Syncope and collapse (principal); I95.9 Hypotension, unspecified; I10 Essential (primary) hypertension; S61.011A Laceration without foreign body of right thumb without damage to nail, initial encounter; S61.218A Laceration without foreign body of other finger without damage to nail, initial encounter; W18.39XA Other fall on same level, initial encounter; Y93.89 Activity, other specified; Y92.009 Unspecified place in unspecified non-institutional (private) residence as the place of occurrence of the external cause; F17.200 Nicotine dependence, unspecified, uncomplicated
CPT/HCPCS: 12002; 36415; 71046; 80053; 83690; 84484; 85025; 90471; 90715; 93005; 99284; A9270

== ENCOUNTER 2022-04-10 23:14 | Outpatient (CLI) | payer MEDICARE | END 2022-04-10 23:59 | disposition home or self-care (01) | LOC: EMS 23:14 | DX: I48.91 Unspecified atrial fibrillation (principal); R51.9 Headache, unspecified; Z95.811 Presence of heart assist device | CPT/HCPCS: A0425; A0427 ==

== ENCOUNTER 2022-04-10 23:41 | Emergency (ER) | payer MEDICARE ==
[2022-04-11 00:11] LABS: BASOPHILS # (AUTO) 0.1 10^3/uL (0.0-0.1); BASOPHILS % (AUTO) 0.7 %; EOSINOPHILS # (AUTO) 0.5 10^3/uL (0.0-0.7); EOSINOPHILS % (AUTO) 4.2 %; HCT - HEMATOCRIT 38.1 % (37.0-47.0); HGB - HEMOGLOBIN 12.5 g/dL (12.0-16.0); LYMPHOCYTES # (AUTO) 3.4 10^3/uL (1.5-3.5); LYMPHOCYTES % (AUTO) 30.9 %; MEAN CORPUSCULAR HEMOGLOBIN 31.6 pg (27.0-31.0); MEAN CORPUSCULAR HGB CONC 32.8 g/dL (32.0-36.0); MEAN CORPUSCULAR VOLUME 96.5 fL (81.0-99.0); MEAN PLATELET VOLUME 10.8 fL (7.9-10.8); MONOCYTES # (AUTO) 1.2 10^3/uL (0.0-1.0); NEUTROPHILS # (AUTO) 5.8 10^3/uL (1.5-6.6); NEUTROPHILS % (AUTO) 52.9 %; PLT - PLATELET COUNT 307 10^3/uL (130-450); RED BLOOD COUNT 3.95 10^6/uL (4.20-5.40); RED CELL DISTRIBUTION WIDTH 12.7 % (12.0-15.0)
[2022-04-11 00:24] LABS: ALBUMIN 3.6 g/dL (3.2-5.5); ALBUMIN/GLOBULIN RATIO 1.3 (1.0-2.2); BILIRUBIN,TOTAL 0.7 mg/dL (0.2-1.0); CREATININE 0.8 mg/dL (0.4-1.0); POTASSIUM 3.7 mmol/L (3.5-5.0); TOTAL PROTEIN 6.4 g/dL (6.7-8.2)
--- NOTE | 2022-04-11 00:37 | ED Physician Documentation ---
PD HPI CHEST PAIN - Stated complaint Stated Complaint: CHEST PX - Chief complaint Chief Complaint: Cardiac - History obtained from History obtained from: Patient - Additional information Additional information: [id number] With extensive cardiac history including multiple stents, wrote most recent in January 2022, as well as afib with Watchman procedure in March, p/w CP and dizziness this past evening while lying in bed at 2200. Patient took nitro and had immediate relief, also took 325 of aspirin and came to the emergency department. She states she had been feeling normal earlier in the day and d enies shortness of breath, fever, leg swelling, nausea or vomiting. PD PAST MEDICAL HISTORY - Past Medical History Past Medical History: Yes Cardiovascular: High cholesterol, MD, Atrial fibrillation Endocrine/Autoimmune: None GI: None, Colon polyps HEENT: Chronic vision loss, Macular degeneration Psych: Depression Musculoskeletal: Osteoarthritis Derm: None - Past Surgical History Past Surgical History: Yes General: Colonoscopy /[employer]NEY[employer]TERN[employer]ER: Hysterectomy Cardiovascular: Coronary stent HEENT: Tonsil/Adenoidectomy - Present Medications Home Medications: Ambulatory Orders Medication Instructions Recorded Confirmed Atorvastatin Calcium [Lipitor] 20 mg PO DAILY 07/03/12 04/03/17 Multivitamin [Multivitamins] 1 each PO DAILY 07/03/12 04/03/17 Aspirin [Adult Low Dose Aspirin EC] 81 mg PO DAILY 08/13/16 04/03/17 Metoprolol Tartrate 12.5 mg PO DAILY 08/13/16 04/03/17 lisinopriL [Lisinopril] 2.5 mg PO DAILY 08/13/16 04/03/17 Mark Cit/Mag/D3/Zn/Radio Operator/Joseph/Bor 400 mg PO DAILY 04/03/17 04/03/17 [Citracal-Vit D + Magnesium Tab] Nitroglycerin [Nitrostat] 0.4 mg SL PRN PRN 04/03/17 04/03/17 [place]-3/Dha/Epa/Fish Oil [Fish Oil 1,000 mg PO DAILY 04/03/17 04/03/17 1,000 mg Softgel] Ubidecarenone [Co Q-10] 200 mg PO DAILY 04/03/17 04/03/17 HYDROcod/ACETAM 5/325 [[place] 5/325] 1 - 2 tablet PO Q6H PRN #14 tablet 06/27/21 - Allergies Allergies/Adverse Reactions: Allergies Allergy/AdvReac Type Severity Reaction Status Date / Time bupropion HCl * Allergy Severe Hives and Verified 04/10/22 23:54 [From Wellbutrin] throat swelling Penicillins Allergy Severe hives and Verified 04/10/22 23:54 throat swelling - Social History Does the pt smoke?: Yes Smoking Status: Current every day smoker Does the pt drink ETOH?: Yes Does the pt have substance abuse?: No - Immunizations Immunizations are current?: Yes - POLST Patient has POLST: No PD ED PE NORMAL - Vitals Vital signs reviewed: Yes - General General: Alert and oriented X 3, No acute distress, Well developed/nourished - HEENT HEENT: Atraumatic, PERRL, EOMI - Neck Neck: Supple, no meningeal sign - Cardiac Cardiac: RRR - Respiratory Respiratory: No respiratory distress, Clear bilaterally - Abdomen Abdomen: Non tender, Non distended Results - Vitals Vitals: Vital Signs - 24 hr 04/10/22 04/10/22 04/11/22 23:43 23:47 00:16 Temperature 36.6 C Heart Rate 74 68 Respiratory 14 14 Rate Blood Pressure 116/67 105/45 L Blood Pressure 104/65 [Left] Blood Pressure 116/67 [Right] O2 Saturation 99 96 04/11/22 04/11/22 01:26 01:55 Temperature Heart Rate 58 L 59 L Respiratory 17 16 Rate Blood Pressure 104/51 L 106/54 L Blood Pressure [Left] Blood Pressure [Right] O2 Saturation 99 96 Oxygen O2 Source Room air - EKG (time done) 2347 Rate: Rate (enter#) (75) Rhythm: NSR, LAE Ischemia: Other (old inferior lead changes c/w ischemia) Compare to prior EKG: Unchanged from prior EKG (04/06/22) - Labs Labs: Laboratory Tests 04/10/22 04/10/22 04/10/22 23:47 23:47 23:47 WBC 11.0 H RBC 3.95 L Hgb 12.5 Hct 38.1 MCV 96.5 MCH 31.6 H MCHC 32.8 RDW 12.7 Plt Count 307 MPV 10.8 Neut # (Auto) 5.8 Lymph # (Auto) 3.4 [place] # (Auto) 1.2 H Eos # (Auto) 0.5 Baso # (Auto) 0.1 Absolute Nucleated RBC 0.00 Nucleated RBC % 0.0 Sodium 139 Potassium 3.7 Chloride 105 Carbon Dioxide 26 Anion Gap 8.0 BUN 14 Creatinine 0.8 Estimated GFR (MDRD) 70 L Glucose 112 H Calcium 9.0 Total Bilirubin 0.7 AST 18 ALT 17 Alkaline Phosphatase 45 Troponin I High Sens 37.1 H* Total Protein 6.4 L Albumin 3.6 Globulin 2.8 Albumin/Globulin Ratio 1.3 Lipase 25 PD Medical Decision Making - ED course ED course: 76-year-old woman with history of MD, just seen here 4 days ago with elevated troponin at that time, presents with chest pain today. CBC, abdominal panel, cxr, ekg and troponin preformed. all noncontributory. trop lowered down to 37.1 today. repeat ekg and trop stable. She just had her blood pressure medications lowered (lisinopril 5 to 2.5 and metoprolol 25 to 12.5) and is displaying mildly low blood pressure but maintaining MAP > 65. Patient's sanitary inspector Dr. Galindo had bariatric surgeon sanitary inspector Dr. Jg cancino - I discussed this with him and he recommends outpatient follow up for her appointment with Dr. Galindo this . does not recommend any more med adjustment. I d/w the patient who is agreeable. return precautions given. Departure - Departure Clinical Impression: Chest pain Condition: Good Instructions: Angina Dc Comments: You were seen in the emergency department for an episode of chest pain. Your lab work, EKG, and chest x-ray today uncovered no emergent cause for your symptoms. I discussed with the on-call sanitary inspector Dr. Siddiqui and he recommends to follow-up in clinic with Dr. Galindo this . Return to the emergency department if you experience new or worsening symptoms or have other concerns.
--- NOTE | 2022-04-11 01:45 | XRAY Report ---
PROCEDURE: Chest 1 View X-Ray INDICATIONS: Chest pain TECHNIQUE: One view of the chest was acquired. COMPARISON: Chest x-ray 04/07/2022, 04/03/2017. FINDINGS: Surgical changes and devices: None. Lungs and pleura: No pleural effusions or pneumothorax. No acute consolidation. Linear opacities are redemonstrated in the lung bases likely represent scarring or atelectasis. Mediastinum: Mediastinal contours appear normal. Heart size is at the upper limits of normal normal . Bones and chest wall: No suspicious bony lesions. Overlying soft tissues appear unremarkable. IMPRESSION: 1. No acute cardiopulmonary disease. Reviewed by: Gideon Byrd MD on 04/11/2022 1:44 AM [facility] Approved by: Gideno Byrd MD on 04/11/2022 1:44 AM [facility] Station ID: [id number]
[2022-04-11 02:35] VITALS: BP 110/60
== END 2022-04-11 02:57 | disposition home or self-care (01) ==
LOC: EDUNIT# → ED 23:41
DX: R07.9 Chest pain, unspecified (principal); F17.200 Nicotine dependence, unspecified, uncomplicated
CPT/HCPCS: 36415; 80053; 83690; 83735; 84484; 85025; 93005; 99284